=== PATIENT | female | born 1935 | race Caucasian/White ===

== ENCOUNTER 2017-02-21 13:02 | Emergency (ER) | payer OTHER, MEDICARE ==
[2017-02-21 13:11] VITALS: O2SAT 93
--- NOTE | 2017-02-21 13:37 | EDPHY ---
H & P Time Seen by Provider: 02/21/17 13:36 HPI/ROS: CHIEF COMPLAINT: Foot injury HISTORY OF PRESENT ILLNESS: 81-year-old female arrives via private vehicle complaining of acute left forefoot pain after she accidentally rolled her foot earlier today. She is able to bear weight albeit with pain. She is here with her son. Denies paresthesia. Denies fall from height. Denies ankle or proximal tibia or fibula or knee pain. Denies head injury. PHYSICAL EXAM (Prior to examination, patient consented to physical exam, hands were washed and my usual and customary physical exam procedures followed) 1) GENERAL: Well-developed, well-nourished, alert and oriented. Appears to be in no acute distress. 2) HEAD: Normocephalic 3) HEENT: Pupils equal, round, reactive to light bilaterally. 4) LUNGS: Breathing comfortably. 5) MUSCULOSKELETAL: Tender to palpation 2nd 3rd distal metatarsal. No deformity no angulation. proximal tibia and fibula nontender .5th MT nontender negative Rivas test, compartments soft. Normal color normal temperature. 6) SKIN: intact 7) VASCULAR: DP,PT pulses and cap refill present and brisk DIFFERENTIAL DIAGNOSIS: in no particular order including but not limited to fracture, sprain, compartment syndrome Procedure: Splint A postoperative shoe splint was applied by ER pest control technician. After application of the splint I returned and re-examined the patient. The splint was adequately immobilizing the joint and distal to the splint the patient's circulation and sensation were intact. Patient shows no signs of compartment syndrome. Was given orthopedic precautions. Smoking Status: Never smoked Constitutional: Initial Vital Signs Temperature (C) 36.4 C 02/21/17 13:08 Heart Rate 52 L 02/21/17 13:08 Respiratory Rate 17 02/21/17 13:08 Blood Pressure 109/61 02/21/17 13:08 O2 Sat (%) 93 02/21/17 13:08 O2 Delivery Mode Room Air Allergies/Adverse Reactions: No Known Allergies Allergy (Unverified 02/21/17 13:06) Home Medications: Medication Instructions Recorded Donepezil HCl 02/21/17 Sertraline HCl 02/21/17 buPROPion 02/21/17 MDM/Departure - MDM Imaging Results: Imaging Impressions Foot X-Ray 02/21/17 13:11 Impression: 1. Artifact versus nondisplaced second metatarsal head fracture. 2. Suspect subacute base of second metatarsal fracture. No widening of the Lisfranc joint. Findings discussed with Emergency Department physician, Dr. Sheryl Garcia on February 21, 2017 at 1405 hours. Images reviewed myself ED Course/Re-evaluation: Discussed the imaging results with the patient. Recommended postoperative shoe. She lives by herself. Have offered admission however she declines states that she feels comfortable ambulating and taking care of herself. She would like to follow up with benefits specialist recruiter at [facility]. Given name of Dr. Tk Garcia. Usual and customary orthopedic precautions instructions.Care of patient under supervision of primary supervising physician Dr Felipe . - Depart Disposition: Home, Routine, Self-Care Clinical Impression: Foot fracture, left Qualifiers: Encounter type: initial encounter Fracture type: closed Qualified Code(s): S92.902A - Unspecified fracture of left foot, initial encounter for closed fracture Condition: Good Instructions: Foot Fracture in Adults (ED) Additional Instructions: Return to the ER immediately if you experience discoloration, have worsening pain, numbness, tingling, or any other symptoms that concern you. If you received x-rays in the emergency department today, be advised, that ligamentous , tendon, muscular, and other non-bony injury cannot be fully ruled out. Try to keep your affected extremity elevated above the level of your chest, and keep cold packs on the affected area, for the next 48 hours. Referrals: Tk Garcia MD [Medical Doctor] - 2-3 days without fail
[2017-02-21 14:37] VITALS: BP 116/73; PULSE 54; RESP 18; TEMP 97.7
== END 2017-02-21 14:37 | disposition home or self-care (01) ==
DX: S92.902A Unspecified fracture of left foot, initial encounter for closed fracture (principal); X58.XXXA Exposure to other specified factors, initial encounter
CPT/HCPCS: 73630; 99283; L3260

== ENCOUNTER → 2017-09-06 | Outpatient (CLI) | payer OTHER, MEDICARE | LOC: BMCIMAGING 11:54 | PROVIDERS: ATTEND Podiatrist Foot & Ankle Surgery | DX: M79.671 Pain in right foot (principal); M79.672 Pain in left foot; M20.11 Hallux valgus (acquired), right foot; M20.12 Hallux valgus (acquired), left foot; M19.071 Primary osteoarthritis, right ankle and foot; M19.072 Primary osteoarthritis, left ankle and foot; M77.32 Calcaneal spur, left foot; M77.31 Calcaneal spur, right foot ==

== ENCOUNTER 2018-09-18 13:39 | Inpatient (IN) | payer OTHER, MEDICARE | END 2018-09-20 15:45 | disposition hospice, home (50) | LOC: F2W 16:00 ==